=== PATIENT | male | born 1985 | race African-American/Black ===

== ENCOUNTER 2021-03-11 19:20 | Emergency (ER) | payer OTHER ==
[~2021-03-11] VITALS: Ht 170.2 cm; Wt 95.3 kg
[2021-03-11 20:32] LABS: PLATELET COUNT 151 K/uL (142-355)
[2021-03-11 20:39] LABS: POTASSIUM 4.2 mmol/L (3.6-5.2)
[2021-03-11 21:20] VITALS: BP 139/80; TEMP 99
== END 2021-03-11 21:20 | disposition home or self-care (01) ==
LOC: ED 19:20
PROVIDERS: Hospitalist
DX: U07.1 COVID-19 (principal); J06.9 Acute upper respiratory infection, unspecified; R50.9 Fever, unspecified
CPT/HCPCS: 36415; 80048; 85027; 87635; 93005; 96372; 99283; J1100; U0003